=== PATIENT | female | born 1990 | race Hispanic/Latino ===

== ENCOUNTER 2021-10-16 17:25 | Emergency (ER) | payer OTHER ==
--- OUTSIDE RECORDS SUMMARY | 2021-10-16 17:28 | XMS REPORT | Continuity of Care Document ---
:1990 Author Organization [facility] t Address [address] [place] [address] Dr. M[address]. [address] [place] [address] Care Team Providers Name Role Phone Lainey Mitchell Attending Clinician Unavailable ISAAC Attending Clinician Unavailable Mckenzie Attending Clinician [phone] Lab, Fam Pob I Attending Clinician Unavailable Marvin Shelley Attending Clinician Marvin DELGADO Attending Clinician Unavailable Lainey Mitchell Admitting Clinician Unavailable ISAAC Admitting Clinician Unavailable Payers Payer Name Policy Type Policy Number Effective Date Expiration Date S am[place] [id number] 2017 - [employer] (POS) 00:00:00 Problems This patient has no known problems. Allergies, Adverse Reactions, Alerts Allergy Allergy Status Severity Reaction(s) Onset Inactive Treating Comm ents Source Name Type Date Date Clinician No Known DA Active [facility] 00 [facility] No Known DA Active U [facility] 6- [facility] 00 l [facility] No Known DA Active U [facility] All[facility]ie 6 [facility] 00:[facility]: [facility] 00 l [facility] NO KNOWN Drug Active Univers ALLERGIE Class ity of [facility] Social History Social Habit Start Date Stop Date Quantity Comments Source Sex Assigned At Uni versity [facility] to [facility]2 [facility] Smoking Status Start Date Stop Date Source Unknown if [facility] Medications This patient has no known medications. Procedures Procedure Date / Time Performed Performing Clinician Kirstie robinson [id number] 2021-06-30 00:00:00 HENDE.01 [facility] [id number] 2021-06-30 00:00:00 HENDE.01 [facility] [id number] 2021-06-29 00:00:00 HENDE.01 [facility] [id number] 2021-06-29 00:00:00 HENDE.01 [facility] Encounters Start End Encounter Admission Attending Care Care Encounter Source Date/Time Date/Time Type Type Clinicians Facility Department ID 2021-07-18 [id number] 09:31:00 Riri [id number] [facility] 2021-10-03 2021-10-03 Outpatient SISSON_C [facility] [id number] [place] 03:19:00 03:19:00 0531 Commun i ty Hospita [facility] 2021-10-03 2021-10-03 [facility] [id number] 00:00:00 00:00:00 Sarita [id number] 2021-09-27 2021-09-27 [facility] [id number] [place] 03:54:00 03:54:00 0525 Commun i ty Hospita l [facility] 2021-06-29 2021-07-01 Inpatient KARIN Leone [facility] [id number] [facility] 22:01:00 13:13:00 Riri [id number] [facility] 2021-06-29 2021-06-29 Inpatient DENISSE Leone OBPP [id number] [facility] 22:01:00 22:01:00 Riri 95 [facility] 2021-01-13 2021-01-13 Outpatient KARIN Davis [facility] [id number] [facility] 08:16:00 08:16:00 Riri [id number] [facility] [place] 2019-10-28 2019-10-28 Laboratory Lab, Adc Fam Pob I [facility] 1.2. [id number] Univers 10:46:51 11:06:51 Only Inna Delgado [facility] [id number] ity of [place] [id number] [place] [facility] [id number] Sc dical [facility] [address] 2019-10-28 2019-10-28 Outpatient R DANNY [facility] [id number] Univers 11:00:00 11:00:00 INNA albarran [facility] Results Test Description Test Time Test Comments Results Result Comments Source CBC W/AUTO DIFF 2021-06-30 07:56:00 Test Item Value Reference Range Interpretation Comme nts WHITE BLOOD CELL (test code = WBC) 13.1 K/mm3 6.5-12.3 H RED BLOOD CELL (test code = RBC) 3.75 M/mm3 3.51-4.69 N HEMOGLOBIN (test code = HGB) 11.6 g/dL 10.1-13.8 N HEMATOCRIT (test code = HCT) 34.8 % 32.5-41.8 N MEAN CELL VOLUME (test code = MCV) 92.8 fL 84.6-96.6 N MEAN CELL HGB (test code = MCH) 30.9 pg 27.3-33.9 N MEAN CELL HGB CONCETRATION (test code = MCHC) 33.3 gm/dL 32.0-34. 2 N RED CELL DISTRIBUTION WIDTH (test code = RDW) 12.7 % 12.2-16. 3 N PLATELET COUNT (test code = PLT) 127 K/mm3 134-363 L MEAN PLATELET VOLUME (test code = MPV) 12.3 fL 9.2-12.7 N NEUTROPHIL % (test code = NT%) 75.6 % 57.9-77.3 N LYMPHOCYTE % (test code = LY%) 15.0 % 14.5-29.7 N MONOCYTE % (test code = MO%) 6.8 % 3.6-10.2 N EOSINOPHIL % (test code = EO%) 1.4 % 0.0-3.0 N BASOPHIL % (test code = BA%) 0.4 % 0.1-0.9 N NEUTROPHIL # (test code = NT#) 9.9 K/mm3 LYMPHOCYTE # (test code = LY#) 2.0 K/mm3 MONOCYTE # (test code = MO#) 0.9 K/mm3 EOSINOPHIL # (test code = EO#) 0.18 K/mm3 BASOPHIL # (test code = BA#) 0.1 K/mm3 RBC MORPHOLOGY REQUIRED (test code = RBCM) NORMAL NORMAL PLATELET MORPHOLOGY REQUIRED (test code = PLTMR) NORMAL PAT L AG HEPATITIS B [id number] 04:38:00 Test Item Value Reference Range Interpretation Comments AG HEPATITIS B SURFACE (test code NONREACTIVE NONREACTIVE = HBSAG) AB HEPATITIS C [id number] 04:38:00 Test Item Value Reference Range Interpretation Comments AB HEPATITIS C (test code = NONREACTIVE NONREACTIVE HCVAB) SIGNAL TO CUTOFF (test code = 0.08 <0.80 N CUTOFF) AB [id number] 04:38:00 Test Item Value Reference Range Interpretation Comments AB TREPONEMA (test code = TREPAB) NONREACTIVE NONREACTIVE AB HIV 1 04:38:00 Test Item Value Reference Range Interpretation Comments AB HIV 1 2 (test NONREACTIVE NONREACTIVE Done by Luis avila [facility] code = [id number]) 4th Gen HIV Ag/Ab Combo Screen RUBELLA [id number] 04:38:00 Test Item Value Reference Range Interpretation Comments RUBELLA SCREEN 85.9 IUnit/ml Results >10. 0IUnits/ml (test code = are considered positive RUBSC) inaccordance wi th the CLSI guidelines and based on the WH [employer] S tandard for Anti-Rubell a serum as anindicator of immune status and a br eakpoint to detect mostseropositiv e persons. COVID 19 Asymptomatic IH [id number] 23:42:00 Test Item Value Reference Range Interpretation Comments COVID 19 NEGATIVE NEGATIVE This test has been Asymptomatic IH AG authorize d only for the (test code = detection ofpro teins from COVNONPUIAG) SARS-CoV-2, not for any other viruses orpathogens. N egative results should be treated as presumptive andconfirmed wi th a molecular assay , if necessary for patientmanageme nt. Negative result s do not rule out COVID- 19 andshould not b e used as the sole basis for treatment orpat ient management deci sions, including infec tion controldecision s. Negative result s should be considered i n thecontext of a patient's recent exposure s, history and thepresence of clinical signs and symptoms consis tent withCOVID-19. T his test has not been FD A cleared or approved; th e test hasbeen authori vera by FDA under an Emerge ncy Use Authorization(E UA) for use by laborato jessy certified under the CLIA thatmeet the re quirements to perform mode rate, high or waivedcomple xity tests. This sigifredo t is authorized for use at thePoint of Car e (POC), i.e., in patien t care settingsoperati ng under a CLIA Certificat e of Waiver, Certifi lluvia ofCompliance, o r Certificate of Accreditation. This test is only authori zed for the duration of thedeclaration that circumstances e xist justifying theauthorizatio n of emergency use o f in vitro diagnostic test sfor detection and/o r diagnosis of CO VID-19 under Jmpshpc50 4(b)(1) of the Act, 21 U.S .C. 360bbb-3(b)(1), unless theauthorizatio n is terminated or r evoked sooner. CBC W/AUTO [id number] 23:04:00 Test Item Value Reference Range Interpretation Comments WHITE BLOOD CELL (test code = WBC) 15.9 K/mm3 6.5-12.3 H RED BLOOD CELL (test code = RBC) 4.31 M/mm3 3.51-4.69 N HEMOGLOBIN (test code = HGB) 13.3 g/dL 10.1-13.8 N HEMATOCRIT (test code = HCT) 38.9 % 32.5-41.8 N MEAN CELL VOLUME (test code = MCV) 90.3 fL 84.6-96.6 N MEAN CELL HGB (test code = MCH) 30.9 pg 27.3-33.9 N MEAN CELL HGB CONCETRATION (test 34.2 gm/dL 32.0-34.2 N code = MCHC) RED CELL DISTRIBUTION WIDTH (test 12.6 % 12.2-16.3 N code = RDW) PLATELET COUNT (test code = PLT) 162 K/mm3 134-363 N MEAN PLATELET VOLUME (test code = 13.2 fL 9.2-12.7 H MPV) NEUTROPHIL % (test code = NT%) 66.6 % 57.9-77.3 N LYMPHOCYTE % (test code = LY%) 22.3 % 14.5-29.7 N MONOCYTE % (test code = MO%) 7.6 % 3.6-10.2 N EOSINOPHIL % (test code = EO%) 1.7 % 0.0-3.0 N BASOPHIL % (test code = BA%) 0.5 % 0.1-0.9 N NEUTROPHIL # (test code = NT#) 10.6 K/mm3 LYMPHOCYTE # (test code = LY#) 3.6 K/mm3 MONOCYTE # (test code = MO#) 1.2 K/mm3 EOSINOPHIL # (test code = EO#) 0.27 K/mm3 BASOPHIL # (test code = BA#) 0.1 K/mm3 RBC MORPHOLOGY REQUIRED (test code NORMAL NORMAL = RBCM) PLATELET MORPHOLOGY REQUIRED (test NORMAL NORMAL code = PLTMR) - US PREG UT [id number] 00:00:00 [facility] : 1990 Sex: F Patient Name: ENID OLIVER Unit No: [id number] EXAMS: CPT CODE: [id number] US PREG UT TRANSVAGINAL 56000 PROCEDURE INFORMATION: Exam: US Duplex Artery or Vein of the Abdominal and/or Reproductive Organs, Limited Ovaries Exam date and time: 01/13/2021 8:33 AM Age: 30 years old Clinical indication: Screening exam; Cx length; Routine US, uterus; Additional info:HX of delivery, check cervical length TECHNIQUE: Imaging protocol: Real-time duplexultrasound scan of the arterial or venous flow with hoover scale, color Doppler flow and spectral waveform analysis with image documentation. Limited duplex exam focused on the ovaries. Duplex images required to evaluate for torsion and other vascular conditions. COMPARISON: US PREG UT TRA NSVAGINAL 08/07/2018 11:26 AM FINDINGS: Right ovary Doppler: The right ovary was not visualized. Left ovary Doppler: Normal duplex of the ovary. Normal Doppler waveforms and color flow.IMPRESSION: Normal left ovarian blood flow. Nonvisualized right ovary. PROCEDURE INFORMATION: Exam: US First Trimester, Transabdominal and US , Transvaginal Exam date and time: 01/13/2021 8:33 AM Age: 30 years old Clinical indication: Screening exam; Cx length; Routine US, uterus; Additional info: HX of delivery, check cervical length LABS AND CLINICAL REPORTS: Last menstrual period start date: 10/11/2020 Gestational age by LMP: 13 weeks, 3 days Estimated due date by last menstrual period: 07/18/2021 TECHNIQUE: Imaging protocol: Real-time transabdominal obstetrical ultrasound of the maternal pelvis and a first trimester , less than 14 weeks 0 days, with image documentation. Transvaginal imaging was used for better evaluation of the fetus, adnexa, and/or cervix. COMPARISON: US PREG UT TRANSVAGINAL 08/07/2018 11:26 AM FINDINGS: Gestation: Intrauterine with normal appearance of the [facility] NAME: ENID OLIVER Radiology Department P HYS: Riri Mcgraw MD [address] : 1990 AGE: 30 SEX: F [place], [place] [address] LOC: KelRAD PHONE #: [phone] EXAM DATE: 01/13/2021 STATUS: REG CLI FAX #: [phone] RAD NO: Page 1 Signed Report (CONTINUED) Patient Name: ENID OLIVER Unit No: [id number] EXAMS: CPT CODE: [id number] US PREG UT TRANSVAGINAL 83281 <Continued> fetus for gestational age. Evaluation of anatomy is limited at this point in gestational. Embryonic/ heart rate: heart rate of 148 bpm. Extra-embryonic membranes/Placenta: Posterior placenta without placenta previa. No placenta previa. No subchor ionic hemorrhage. Amniotic fluid: Subjectively normal. BIOMETRY: Gestational age (AUA): 13 weeks, 6 days Ruthven-Rump length: 7.9 cm MATERNAL: Uterus: Anteverted uterus measures 12 x 9 x 11.6 cm. Normal contour and myometrial echogenicity. Cervix: The cervix measures 3.7 cm. Right adnexa: The right ovary was not visualized. No adnexal mass. Left adnexa:The left ovary measures 2.3 x 1.4 x 1.8 cm. Normal contour. Normal blood flow. Corpus luteum measures 0.9 x 1.1 x 0.7 cm. Intraperitoneal space: No intraperitoneal free fluid. IMPRESSION: 1. Single live intrauterine with heart rate of 148 bpm and estimated g estational age of 13 weeks, 6 days by today's exam. 2. The cervix measures 3.7 cm. at 0955 Reported and signed by: Melvin Sims MD CC: Riri Mitchell MD Technologist: Citlali Mo [facility] Probe: [id number] Trnscrbd D/ (0955) GCD.CPS Orig Print D/T: S: 01/13/2021 (0958) [facility] NAME: ENID OLIVER Radiology Department PHYS: PRIYANK.Tera - Riri Mitchell MD [address] : 1990 AGE: 30 SEX: F [place], [place] [address] LOC: Fernando.RAD PHONE #: [phone] EXAM DATE: 01/13/2021 STATUS: REG CLI FAX #: [phone] RAD NO: Page 2 Signed Report Patient Name: ENID OLIVER Unit No: [id number] EXAMS: CPT CODE: [id number] US PREG UT TRANSVAGINAL 59539 <Continued> [facility] NAME: ENID OLIVER Radiology Department PHYS: Riri Mcgraw MD [address] : 1990 AGE: 30 SEX: F [place], [place] [address] LOC: F.RAD PHONE #: [phone] EXAM DATE: 01/13/2021 STATUS: REG CLI FAX #: [phone] RAD NO: Page 3 Signed Report- US PREG EVAL 1ST [id number] 00:00:00 [facility] 1990 Sex: F Patient Name: ENID OLIVER Unit No: [id number] EXAMS: CPT CODE: [id number] US PREG EVAL 1ST TRIMTR 79863 PROCEDURE INFORMATION: Exam: US Duplex Artery or Vein of the Abdominal and/or Reproductive Organs, Limited Ovaries Exam date and time: 01/13/2021 8:33 AM Age: 30 years old Clinical indication: Screening exam; Cx length; Routine US, uterus; Additional info:HX of delivery, check cervical length TECHNIQUE: Imaging protocol: Real-time duplexultrasound scan of the arterial or venous flow with hoover scale, color Doppler flow and spectral waveform analysis with image documentation. Limited duplex exam focused on the ovaries. Duplex images required to evaluate for torsion and other vascular conditions. COMPARISON: US PREG UT TRA NSVAGINAL 08/07/2018 11:26 AM FINDINGS: Right ovary Doppler: The right ovary was not visualized. Left ovary Doppler: Normal duplex of the ovary. Normal Doppler waveforms and color flow.IMPRESSION: Normal left ovarian blood flow. Nonvisualized right ovary. PROCEDURE INFORMATION: Exam: US First Trimester, Transabdominal and US , Transvaginal Exam date and time: 01/13/2021 8:33 AM Age: 30 years old Clinical indication: Screening exam; Cx length; Routine US, uterus; Additional info: HX of delivery, check cervical length LABS AND CLINICAL REPORTS: Last menstrual period start date: 10/11/2020 Gestational age by LMP: 13 weeks, 3 days Estimated due date by last menstrual period: 07/18/2021 TECHNIQUE: Imaging protocol: Real-time transabdominal obstetrical ultrasound of the maternal pelvis and a first trimester , less than 14 weeks 0 days, with image documentation. Transvaginal imaging was used for better evaluation of the fetus, adnexa, and/or cervix. COMPARISON: US PREG UT TRANSVAGINAL 08/07/2018 11:26 AM FINDINGS: Gestation: Intrauterine with normal appearance of the [facility] NAME: ENID OLIVER Radiology Department P HYS: JOSE - Riri Mitchell MD [address] : 1990 AGE: 30 SEX: F [place], [place] [address] LOC: F.RAD PHONE #: [phone] EXAM DATE: 01/13/2021 STATUS: REG CLI FAX #: [phone] RAD NO: Page 1 Signed Report (CONTINUED) Patient Name: ENID OLIVER Unit No: [id number] EXAMS: CPT CODE: [id number] US PREG EVAL 1ST TRIMTR 96811 <Continued> fetus for gestational age. Evaluation of anatomy is limited at this point in gestational. Embryonic/ heart rate: heart rate of 148 bpm. Extra-embryonic membranes/Placenta: Posterior placenta without placenta previa. No placenta previa. No subchor ionic hemorrhage. Amniotic fluid: Subjectively normal. BIOMETRY: Gestational age (AUA): 13 weeks, 6 days Ruthven-Rump length: 7.9 cm MATERNAL: Uterus: Anteverted uterus measures 12 x 9 x 11.6 cm. Normal contour and myometrial echogenicity. Cervix: The cervix measures 3.7 cm. Right adnexa: The right ovary was not visualized. No adnexal mass. Left adnexa:The left ovary measures 2.3 x 1.4 x 1.8 cm. Normal contour. Normal blood flow. Corpus luteum measures 0.9 x 1.1 x 0.7 cm. Intraperitoneal space: No intraperitoneal free fluid. IMPRESSION: 1. Single live intrauterine with heart rate of 148 bpm and estimated g estational age of 13 weeks, 6 days by today's exam. 2. The cervix measures 3.7 cm. at 0955 Reported and signed by: Melvin Sims MD CC: Riri Mitchell MD Technologist: Citlali Mo RDMS Probe: Trnscrbd D/ (3555) GCD.CPS Orig Print D/T: S: 01/13/2021 (0956) [facility] NAME: ENID OLIVER Radiology Department PHYS: PRIYANK. - Riri Mitchell MD [address] : 1990 AGE: 30 SEX: F [place] [address] LOC: Fernando.RAD PHONE #: [phone] EXAM DATE: 01/13/2021 STATUS: REG CLI FAX #: [phone] RAD NO: Page 2 Signed Report Patient Name: ENID OLIVER Unit No: [id number] EXAMS: CPT CODE: [id number] US PREG EVAL 1ST TRIMTR 23544 <Continued> [facility] NAME: ENID OLIVER Radiology Department PHYS: - Riri Mitchell MD [address] : 1990 AGE: 30 SEX: F [place] [address] LOC: F.RAD PHONE #: [phone] EXAM DATE: 01/13/2021 STATUS: REG CLI FAX #: [phone] RAD NO: Page 3 Signed Report- DUP AB/PEL/SC/[id number] 00:00:00 [facility] : 1990 Sex: F Patient Name: ENID OLIVER Unit No: [id number] EXAMS: CPT CODE: [id number] DUP AB/PEL/SC/LTD 57218 PROCEDURE INFORMATION: Exam: US Duplex Artery or Vein of the Abdominal and/or Reproductive Organs, Limited Ovaries Exam date and time: 01/13/2021 8:33 AM Age: 30 years old Clinical indication: Screening exam; Cx length; Routine US, uterus; Additional info:HX of delivery, check cervical length TECHNIQUE: Imaging protocol: Real-time duplex ultrasound scan of the arterial or venous flow with hoover scale, color Doppler flow and spectral waveform analysis with image documentation. Limited duplex exam focused on the ovaries. Duplex images required to evaluate for torsion and other vascular conditions. COMPARISON: US PREG UT TRANSVAGINAL 08/07/2018 11:26 AM FINDINGS: Right ovary Doppler: The right ovary was not visualized. Left ovary Doppler: Normal duplex of the ovary. Normal Doppler waveforms and color flow.IMPRESSION: Normal left ovarian blood flow. Nonvisualized right ovary. PROCEDURE INFORMATION: Exam: US First Trimester, Transabdominal and US , Transvaginal Exam date and time: 01/13/2021 8:33 AM Age: 30 years old Clinical indication: Screening exam; Cx length; Routine US, uterus; Additional info: HX of delivery, check cervical length LABS AND CLINICAL REPORTS: Last menstrual period start date: 10/11/2020 Gestational age by LMP: 13 weeks, 3 days Estimated due date by last menstrual period: 07/18/2021 TECHNIQUE: Imaging protocol: Real-time transabdominal obstetrical ultrasound of the maternal pelvis and a first trimester , less than 14 weeks 0 days, with image documentation. Transvaginal imaging was used for better evaluation of the fe tus, adnexa, and/or cervix. COMPARISON: US PREG UT TRANSVAGINAL 08/07/2018 11:26 AM FINDINGS: Gestation: Intrauterine with normal appearance of the [facility] NAME: ENID OLIVER Radiology Department PHYS: JOSE Riri Mitchell MD [address] : 1990 AGE: 30 SEX: F [place], [place] [address] LOC: F.RAD PHONE #: [phone] EXAM DATE: 01/13/2021 STATUS: REG CLI FAX #: [phone] RAD NO: Page 1 Signed Report (CONTINUED) Patient Name: ENID OLIVER Unit No: [id number] EXAMS: CPT CODE: [id number] DUP AB/PEL/SC/LTD 40634 <Continued> fetus for gestational age. Evaluation of anatomy is limited at this point in gestational. Embryonic/ heart rate: heart rate of 148 bpm. Extra-embryonic membranes/Placenta: Posterior placenta without placenta previa. No placenta previa. No subchor ionic hemorrhage. Amniotic fluid: Subjectively normal. BIOMETRY: Gestational age (AUA): 13 weeks, 6 days Ruthven-Rump length: 7.9 cm MATERNAL: Uterus: Anteverted uterus measures 12 x 9 x 11.6 cm. Normal contour and myometrial echogenicity. Cervix: The cervix measures 3.7 cm. Right adnexa: The right ovary was not visualized. No adnexal mass. Left adnexa:The left ovary measures 2.3 x 1.4 x 1.8 cm. Normal contour. Normal blood flow. Corpus luteum measures 0.9 x 1.1 x 0.7 cm. Intraperitoneal space: No intraperitoneal free fluid. IMPRESSION: 1. Single live intrauterine with heart rate of 148 bpm and estimated g estational age of 13 weeks, 6 days by today's exam. 2. The cervix measures 3.7 cm. at 0955 Reported and signed by: Melvin Sims MD CC: Riri Mitchell MD Technologist: Citlali Mo RDMS Probe: Trnscrbd D/ (0955) GCD.CPS Orig Print D/T: S: 01/13/2021 (0958) [facility] NAME: ENID OLIVER Radiology Department [facility]YS: [facility] Riri Mitchell MD [address] : 1990 AGE: 30 SEX: F [place] [address] LOC: KelRAD PHONE #: [phone] EXAM DATE: 01/13/2021 STATUS: REG CLI FAX #: [phone] RAD NO: Page 2 Signed Report Patient Name: ENID OLIVER Unit No: [id number] EXAMS: CPT CODE: [id number] DUP AB/PEL/SC/LTD 54754 <Continued> [facility] NAME: ENID OLIVER Radiology Department PHYS: [facility] Riri Mitchell MD [address] : 1990 AGE: 30 SEX: F [place] [address] LOC: KelRAD PHONE #: [phone] EXAM DATE: 01/13/2021 STATUS: REG CLI FAX #: [phone] RAD NO: Page 3 Signed ReportPLACENTA THIRD [id number] 17:30:00 RUN DATE: 10/06/18 [facility] PAGE 1 RUN TIME: 2033 Specimen Inquiry RUN USER: INTERFACE PATIENT: ENID OLIVER LOC: CHAY U #: [id number] AGE/SX: ROOM: [facility] RE09/30/18REG DR: Riri Mitchell MD : [birth year] BED: A DIS: 10/02/18 STATUS: DIS IN TLOC: SPEC #: [id number] RECD: 09/30/18 STATUS: NAJMA AKASH #: [id number] SHERIDAN: 09/30/18- [facility] DR: Riri Mitchell MD ENTERED: 10/01/18 SP TYPE: PLACIII OTHR DR: Carley Hodge MD ORDERED: LEVEL V SURGICA CODES: [id number] - PLACENTA, NOS COPIES TO: Carley Fry MD [address] [place] [address] Riri Mitchell MD [address] [place] [id number] PROCEDURES: LEVEL V SURGICA (Incomplete) TISSUES: PLACENTA, NOS - PLACENTA CLINICAL HISTORY 28 year old, 35.2 weeks, [id number], vaginal delivery, prematurity (kr) FINAL DIAGNOSIS Placenta, delivery: - placenta with 3rd trimester morphology (357 gm), mean placental weight at 35 weeks - 434 gm (placenta is small dates, approximately the 10th percentile for weight at 35 weeks) - accelerated villous maturation with multifocal increase in the syncytial knots, suggestive of hypoperfusion - distal villous hypoplasia, multifocal - trivascular umbilical cord and membranes - free of inflammation COMMENT: The presence of the low weigh of the placenta combined with accelerated villous maturation, multifocal increase in the syncytial knots, and distal villous hypoplasia are compatible with a component of maternal vascular malperfusion. Pathologic features of uteroplacental malperfusion can be seen in maternal conditions with a component of vasculardisease (preeclampsia, hypertension, diabetes mellitus, and autoimmunity). There can be an increased risk for recurrence CONTINUED ON NEXT PAGE RUN DATE: 10/06/18 [facility] PAGE 2 RUN TIME: 2033 Specimen Inquiry RUN USER: INTERFACE SPEC #: [id number] PATIENT: ENID OLIVER Rohan #[id number] (Continued ) FINAL DIAGNOSIS (Continued) in future pregnancies. Tissue code 1 CPT code(s): 58035 marlo/corine dt: 10/03/18 GROSS DESCRIPTION The specimen was received in a container, labeled with the patient's name, unit number and designated "placenta". The following attributes are observed: Cord insertion: 4 cm from margin Cord length: 41 cm Number of vessels: 3 Cord color: Hayward Other cord findings: Less than 12 twists/01 cm surface findings: Steel blue, wrinkled, glistening with focal subchorionic fibrin depositionVasculature: Displays unremarkable blood vasculature Membranes rupture site: 1 cm to margin Membrane color: Hayward Other membrane findings: Thickened The trimmed placental weight: 357 gm Disk measurement: 16 x 15 x 2 cm in greatest dimension Accessory lobes: None Maternal surface: Lobulated and intact Parenchyma: Red, beefy, and spongy with peripheral fibrosis Parenchyma lesions: None Cassettes: A1 through A4 trisha/corine 10/01/18 @ 1125 MICROSCOPIC DESCRIPTION The placenta is composed of small vascular villi which are smaller and more mature than expected for the given gestation age. Multifocal increase in the syncytial knots is present. Multifocal distal villous hypoplasia is identified. The trivascular umbilical cord and membranes are free of inflammation. A subchorionic hematomais present. marlo/corine dt: 10/03/18 Signed Molly Coto 10/03/18 1730 END OF REPORT HGB HCT 2018-10-01 05:40:00 Test Item Value Reference Range Interpretation Comments HEMOGLOBIN (test code = HGB) 11.5 g/dL 10.7-13.9 N HEMATOCRIT (test code = HCT) 33.7 % 32.1-42.1 N AG HEPATITIS B [id number] 03:50:00 Test Item Value Reference Range Interpretation Comments AG HEPATITIS B SURFACE (test code NONREACTIVE NONREACTIVE = HBSAG) IS CONSENT FORM SIGNED FOR HIV TESTING? YAB HEPATITIS C [id number] 03:50:00 Test Item Value Reference Range Interpretation Comments AB HEPATITIS C (test code = NONREACTIVE NONREACTIVE HCVAB) SIGNAL TO CUTOFF (test code = 0.08 <0.80 N CUTOFF) IS CONSENT FORM SIGNED FOR HIV TESTING? YRUBELLA [id number] 03:50:00 Test Item Value Reference Range Interpretation Comments RUBELLA SCREEN 81.5 IUnit/ml Results >10. 0IUnits/ml (test code = are considered positive RUBSC) inaccordance wi th the CLSI guidelines and based on the [employer] S tandard for Anti-Rubell a serum as anindicator of immune status and a br eakpoint to detect mostseropositiv e persons. IS CONSENT FORM SIGNED FOR HIV TESTING? YAB [id number] 03:50:00 Test Item Value Reference Range Interpretation Comments AB TREPONEMA (test code = TREPAB) NONREACTIVE NONREACTIVE IS CONSENT FORM SIGNED FOR HIV TESTING? YAB HIV 1 03:50:00 Test Item Value Reference Range Interpretation Comments AB HIV 1 2 (test NONREACTIVE NONREACTIVE Done by [facility] code = [id number]) 4th Gen HIV Ag/Ab Combo Screen IS CONSENT FORM SIGNED FOR HIV TESTING? YAG HEPATITIS B [id number] 03:23:00 Test Item Value Reference Range Interpretation Comments AG HEPATITIS B SURFACE (test code NONREACTIVE NONREACTIVE = HBSAG) IS CONSENT FORM SIGNED FOR HIV TESTING? YAB HEPATITIS C [id number] 03:23:00 Test Item Value Reference Range Interpretation Comments AB HEPATITIS C (test code = HCVAB) NONREACTIVE SIGNAL TO CUTOFF (test code = CUTOFF) <0.80 IS CONSENT FORM SIGNED FOR HIV TESTING? YRUBELLA [id number] 03:23:00 Test Item Value Reference Range Interpretation Comments RUBELLA SCREEN 81.5 IUnit/ml Results >10. 0IUnits/ml (test code = are considered positive RUBSC) inaccordance wi th the CLSI guidelines and based on the O International S tandard for Anti-Rubell a serum as anindicator of immune status and a br eakpoint to detect mostseropositiv e persons. IS CONSENT FORM SIGNED FOR HIV TESTING? YAB [id number] 03:23:00 Test Item Value Reference Range Interpretation Comments AB TREPONEMA (test code = TREPAB) NONREACTIVE NONREACTIVE IS CONSENT FORM SIGNED FOR HIV TESTING? YAB HIV 1 03:23:00 Test Item Value Reference Range Interpretation Comments AB HIV 1 2 (test code = [id number]) NONREACTIVE IS CONSENT FORM SIGNED FOR HIV TESTING? YAG HEPATITIS B [id number] 03:17:00 Test Item Value Reference Range Interpretation Comments AG HEPATITIS B SURFACE (test code = NONREACTIVE HBSAG) IS CONSENT FORM SIGNED FOR HIV TESTING? B HEPATITIS C [id number] 03:17:00 Test Item Value Reference Range Interpretation Comments AB HEPATITIS C (test code = HCVAB) NONREACTIVE SIGNAL TO CUTOFF (test code = CUTOFF) <0.80 IS CONSENT FORM SIGNED FOR HIV TESTING? YRUBELLA [id number] 03:17:00 Test Item Value Reference Range Interpretation Comments RUBELLA SCREEN 81.5 IUnit/ml Results >10. 0IUnits/ml (test code = are considered positive RUBSC) inaccordance wi th the CLSI guidelines and based on the O International S tandard for Anti-Rubell a serum as anindicator of immune status and a br eakpoint to detect mostseropositiv e persons. IS CONSENT FORM SIGNED FOR HIV TESTING? YAB [id number] 03:17:00 Test Item Value Reference Range Interpretation Comments AB TREPONEMA (test code = TREPAB) NONREACTIVE IS CONSENT FORM SIGNED FOR HIV TESTING? YAB HIV 1 03:17:00 Test Item Value Reference Range Interpretation Comments AB HIV 1 2 (test code = [id number]) NONREACTIVE IS CONSENT FORM SIGNED FOR HIV TESTING? YCBC W/AUTO [id number] 02:39:00 Test Item Value Reference Range Interpretation Comments WHITE BLOOD CELL (test code = WBC) 12.5 K/mm3 6.6-12.1 H RED BLOOD CELL (test code = RBC) 4.14 M/mm3 3.45-5.01 N HEMOGLOBIN (test code = HGB) 13.1 g/dL 10.7-13.9 N HEMATOCRIT (test code = HCT) 38.2 % 32.1-42.1 N MEAN CELL VOLUME (test code = MCV) 92 fL 84.1-94.8 N MEAN CELL HGB (test code = MCH) 31.6 pg 27-35 N MEAN CELL HGB CONCETRATION (test 34.3 gm/dL 32.2-34.1 H code = MCHC) RED CELL DISTRIBUTION WIDTH (test 12.9 % 12.4-16.5 N code = RDW) PLATELET COUNT (test code = PLT) 136 K/mm3 133-385 N IMMATURE PLATELET FRACTION (test 0.0 % 0.0-10.8 N code = IPF) MEAN PLATELET VOLUME (test code = 13.0 fl 9.1-12.7 H MPV) NEUTROPHIL % (test code = NT%) 71.4 % 56.5-79.4 N LYMPHOCYTE % (test code = LY%) 18.1 % 14.3-34.3 N MONOCYTE % (test code = MO%) 7.5 % 5.1-10.4 N EOSINOPHIL % (test code = EO%) 1.3 % 0.1-3.0 N BASOPHIL % (test code = BA%) 0.4 % 0.1-1.0 N NEUTROPHIL # (test code = NT#) 8.9 K/mm3 LYMPHOCYTE # (test code = LY#) 2.3 K/mm3 MONOCYTE # (test code = MO#) 0.9 K/mm3 EOSINOPHIL # (test code = EO#) 0.16 K/mm3 BASOPHIL # (test code = BA#) 0.1 K/mm3 RBC MORPHOLOGY REQUIRED (test code NORMAL NORMAL = RBCM) PLATELET MORPHOLOGY REQUIRED (test NORMAL NORMAL code = PLTMR) AMNISURE (ROM) [id number] 01:59:00 Test Item Value Reference Range Interpretation Comments AMNISURE (ROM) TEST (test code = RUPTURED NON-RUPTURE A AMNI) : *Amnisure QC OK? YESAG HEPATITIS B [id number] 18:10:00 Test Item Value Reference Range Interpretation Comments AG HEPATITIS B SURFACE (test code NONREACTIVE NONREACTIVE = HBSAG) Comments to Charge Operator: LDO LIS CONSENT FORM SIGNED FOR HIV TESTING? YAB HEPATITIS C [id number] 18:10:00 Test Item Value Reference Range Interpretation Comments AB HEPATITIS C (test code = NONREACTIVE NONREACTIVE HCVAB) SIGNAL TO CUTOFF (test code = 0.03 <0.80 N CUTOFF) Comments to Charge Operator: LDO LIS CONSENT FORM SIGNED FOR HIV TESTING? YAB [id number] 18:10:00 Test Item Value Reference Range Interpretation Comments AB TREPONEMA (test code = TREPAB) NONREACTIVE NONREACTIVE Comments to Charge Operator: LDO LIS CONSENT FORM SIGNED FOR HIV TESTING? YAB HIV 1 18:10:00 Test Item Value Reference Range Interpretation Comments AB HIV 1 2 (test NONREACTIVE NONREACTIVE Done by S [employer] code = [id number]) 4th Gen HIV Ag/Ab Combo Screen Comments to Charge Operator: LDO LIS CONSENT FORM SIGNED FOR HIV TESTING? YAG HEPATITIS B [id number] 16:09:00 Test Item Value Reference Range Interpretation Comments AG HEPATITIS B SURFACE (test code = NONREACTIVE HBSAG) Comments to Charge Operator: LDO LIS CONSENT FORM SIGNED FOR HIV TESTING? YAB HEPATITIS C [id number] 16:09:00 Test Item Value Reference Range Interpretation Comments AB HEPATITIS C (test code = NONREACTIVE NONREACTIVE HCVAB) SIGNAL TO CUTOFF (test code = 0.03 <0.80 N CUTOFF) Comments to Charge Operator: LDO LIS CONSENT FORM SIGNED FOR HIV TESTING? YAB [id number] 16:09:00 Test Item Value Reference Range Interpretation Comments AB TREPONEMA (test code = TREPAB) NONREACTIVE NONREACTIVE Comments to Charge Operator: LDO LIS CONSENT FORM SIGNED FOR HIV TESTING? YAB HIV 1 16:09:00 Test Item Value Reference Range Interpretation Comments AB HIV 1 2 (test NONREACTIVE NONREACTIVE Done by S [employer] code = [id number]) 4th Gen HIV Ag/Ab Combo Screen Comments to Charge Operator: LDO LIS CONSENT FORM SIGNED FOR HIV TESTING? YCBC W/AUTO [id number] 14:07:00 Test Item Value Reference Range Interpretation Comments WHITE BLOOD CELL (test code = WBC) 13.6 K/mm3 6.6-12.1 H RED BLOOD CELL (test code = RBC) 4.20 M/mm3 3.45-5.01 N HEMOGLOBIN (test code = HGB) 13.0 g/dL 10.7-13.9 N HEMATOCRIT (test code = HCT) 39.4 % 32.1-42.1 N MEAN CELL VOLUME (test code = MCV) 94 fL 84.1-94.8 N MEAN CELL HGB (test code = MCH) 31.0 pg 27-35 N MEAN CELL HGB CONCETRATION (test 33.0 gm/dL 32.2-34.1 N code = MCHC) RED CELL DISTRIBUTION WIDTH (test 12.7 % 12.4-16.5 N code = RDW) PLATELET COUNT (test code = PLT) 138 K/mm3 133-385 N IMMATURE PLATELET FRACTION (test 0.0 % 0.0-10.8 N code = IPF) MEAN PLATELET VOLUME (test code = 12.6 fl 9.1-12.7 N MPV) NEUTROPHIL % (test code = NT%) 75.8 % 56.5-79.4 N LYMPHOCYTE % (test code = LY%) 14.5 % 14.3-34.3 N MONOCYTE % (test code = MO%) 7.0 % 5.1-10.4 N EOSINOPHIL % (test code = EO%) 0.8 % 0.1-3.0 N BASOPHIL % (test code = BA%) 0.4 % 0.1-1.0 N NEUTROPHIL # (test code = NT#) 10.3 K/mm3 LYMPHOCYTE # (test code = LY#) 2.0 K/mm3 MONOCYTE # (test code = MO#) 1.0 K/mm3 EOSINOPHIL # (test code = EO#) 0.11 K/mm3 BASOPHIL # (test code = BA#) 0.1 K/mm3 RBC MORPHOLOGY REQUIRED (test code NORMAL NORMAL = RBCM) PLATELET MORPHOLOGY REQUIRED (test NORMAL NORMAL code = PLTMR) URINALYSIS [id number] 13:02:00 Test Item Value Reference Range Interpretation Comments UA COLOR (test code = COLU) YELLOW YELLOW UA APPEARANCE (test code = CLEAR CLEAR APPU) UA GLUCOSE DIPSTICK (test code NEGATIVE NEG = DGLUU) UA BILIRUBIN DIPSTICK (test NEGATIVE NEG code = BILU) UA KETONE DIPSTICK (test code NEGATIVE NEG = KETU) UA SPECIFIC GRAVITY (test code 1.011 1.001-1.035 N = SGU) UA BLOOD DIPSTICK (test code = NEG NEG GRZEGORZ) UA PH DIPSTICK (test code = 6.0 5-9 MARAH) UA PROTEIN DIPSTICK (test code NEGATIVE NEG = PROU) UA UROBILINIOGEN DIPSTICK NEGATIVE mg/dL NEG (test code = URO) UA NITRITE DIPSTICK (test code NEG NEG = NAYELI) UA LEUKOCYTE ESTERASE DIPSTICK NEG NEG (test code = LEUU) UA WBC (test code = WBCU) 0-2 #/hpf NONE SEEN UA EPITHELIAL CELLS (test code RARE #/HPF RARE-FEW = EPIU) UA BACTERIA (test code = BACU) RARE /HPF RARE-FEW UA MUCUS (test code = MUCU) RARE NONE SEEN Comments to Charge Operator: MACURINE SAMPLE: CLEAN [id number] 05:12:00 Test Item Value Reference Range Interpretation Comments MAGNESIUM (test code = MAG) 4.5 mg/dL 1.8-2.4 H Comments to Charge Operator: 4 hours after mag initatedCBC W/AUTO [id number] 19:56:00 Test Item Value Reference Range Interpretation Comments WHITE BLOOD CELL (test code = WBC) 11.3 K/mm3 6.6-12.1 N RED BLOOD CELL (test code = RBC) 3.79 M/mm3 3.45-5.01 N HEMOGLOBIN (test code = HGB) 12.0 g/dL 10.7-13.9 N HEMATOCRIT (test code = HCT) 36.1 % 32.1-42.1 N MEAN CELL VOLUME (test code = MCV) 95 fL 84.1-94.8 H MEAN CELL HGB (test code = MCH) 31.7 pg 27-35 N MEAN CELL HGB CONCETRATION (test 33.2 gm/dL 32.2-34.1 N code = MCHC) RED CELL DISTRIBUTION WIDTH (test 12.8 % 12.4-16.5 N code = RDW) PLATELET COUNT (test code = PLT) 144 K/mm3 133-385 N IMMATURE PLATELET FRACTION (test 0.0 % 0.0-10.8 N code = IPF) MEAN PLATELET VOLUME (test code = 12.2 fl 9.1-12.7 N MPV) NEUTROPHIL % (test code = NT%) 84.3 % 56.5-79.4 H LYMPHOCYTE % (test code = LY%) 10.7 % 14.3-34.3 L MONOCYTE % (test code = MO%) 2.3 % 5.1-10.4 L EOSINOPHIL % (test code = EO%) 1.2 % 0.1-3.0 N BASOPHIL % (test code = BA%) 0.4 % 0.1-1.0 N NEUTROPHIL # (test code = NT#) 9.5 K/mm3 LYMPHOCYTE # (test code = LY#) 1.2 K/mm3 MONOCYTE # (test code = MO#) 0.3 K/mm3 EOSINOPHIL # (test code = EO#) 0.13 K/mm3 BASOPHIL # (test code = BA#) 0.1 K/mm3 RBC MORPHOLOGY REQUIRED (test code NORMAL NORMAL = RBCM) PLATELET MORPHOLOGY REQUIRED (test NORMAL NORMAL code = PLTMR) AG HEPATITIS B [id number] 19:35:00 Test Item Value Reference Range Interpretation Comments AG HEPATITIS B SURFACE (test code NONREACTIVE NONREACTIVE = HBSAG) AB HEPATITIS C [id number] 19:35:00 Test Item Value Reference Range Interpretation Comments AB HEPATITIS C (test code = NONREACTIVE NONREACTIVE HCVAB) SIGNAL TO CUTOFF (test code = 0.05 <0.80 N CUTOFF) RUBELLA [id number] 19:35:00 Test Item Value Reference Range Interpretation Comments RUBELLA SCREEN 72.9 IUnit/ml Results >10. 0IUnits/ml (test code = are considered positive RUBSC) inaccordance wi th the CLSI guidelines and based on the [employer] S tandard for Anti-Rubell a serum as anindicator of immune status and a br eakpoint to detect mostseropositiv e persons. AB [id number] 19:35:00 Test Item Value Reference Range Interpretation Comments AB TREPONEMA (test code = TREPAB) NONREACTIVE NONREACTIVE AG HEPATITIS B [id number] 19:06:00 Test Item Value Reference Range Interpretation Comments AG HEPATITIS B SURFACE (test code NONREACTIVE NONREACTIVE = HBSAG) AB HEPATITIS C [id number] 19:06:00 Test Item Value Reference Range Interpretation Comments AB HEPATITIS C (test code = HCVAB) NONREACTIVE SIGNAL TO CUTOFF (test code = CUTOFF) <0.80 RUBELLA [id number] 19:06:00 Test Item Value Reference Range Interpretation Comments RUBELLA SCREEN 72.9 IUnit/ml Results >10. 0IUnits/ml (test code = are considered positive RUBSC) inaccordance wi th the CLSI guidelines and based on the [employer] S tandard for Anti-Rubell a serum as anindicator of immune status and a br eakpoint to detect mostseropositiv e persons. AB [id number] 19:06:00 Test Item Value Reference Range Interpretation Comments AB TREPONEMA (test code = TREPAB) NONREACTIVE NONREACTIVE URINALYSIS [id number] 18:28:00 Test Item Value Reference Range Interpretation Comments UA COLOR (test code = COLU) YELLOW YELLOW UA APPEARANCE (test code = APPU) CLEAR CLEAR UA GLUCOSE DIPSTICK (test code = NEGATIVE NEGATIVE DGLUU) UA BILIRUBIN DIPSTICK (test code = NEGATIVE NEGATIVE BILU) UA KETONE DIPSTICK (test code = NEGATIVE NEGATIVE KETU) UA SPECIFIC GRAVITY (test code = <= 1.005 1.001-1.035 N SGU) UA BLOOD DIPSTICK (test code = NEG NEGATIVE GRZEGORZ) UA PH DIPSTICK (test code = MARAH) 6.0 5-9 UA PROTEIN DIPSTICK (test code = NEGATIVE NEGATIVE PROU) UA UROBILINIOGEN DIPSTICK (test 0.2 EU/dL <=1.0 code = URO) UA NITRITE DIPSTICK (test code = NEGATIVE NEGATIVE NAYELI) UA LEUKOCYTE ESTERASE DIPSTICK NEG NEGATIVE (test code = LEUU) UA WBC (test code = WBCU) 0-2 #/hpf NONE SEEN UA RBC (test code = RBCU) 0-2 #/hpf NONE SEEN UA EPITHELIAL CELLS (test code = RARE #/hpf NONE SEEN EPIU) UA BACTERIA (test code = BACU) RARE #/hpf NONE SEEN [id number] 16:55:00 Test Item Value Reference Range Interpretation Comments FIBRONECTIN POSITIVE Among symp tomatic (test code = FFN) women, little vated levels (>0.05 ug/mL) o ffFN between 24 week s and 34 weeks, 6 days i ndicate increasedrisk o f delivery in <= 7 or <= 14 days from samplecollectio n. Similarly, darin g asymptomatic wo men, elevated levels of fFNbetween 22 w eeks and 30 weeks, 6 day s indicate increa sedrisk of delivery in <= 34 weeks, 6 days o f gestation. Comments to Charge Operator: BROUGHT BY PT FROM OFFICEURINALYSIS [id number] 13:31:00 Test Item Value Reference Range Interpretation Comments UA COLOR (test code = COLU) STRAW YELLOW UA APPEARANCE (test code = CLEAR CLEAR APPU) UA GLUCOSE DIPSTICK (test code NEGATIVE NEG = DGLUU) UA BILIRUBIN DIPSTICK (test NEGATIVE NEG code = BILU) UA KETONE DIPSTICK (test code 1+ NEG A = KETU) UA SPECIFIC GRAVITY (test code 1.002 1.001-1.035 N = SGU) UA BLOOD DIPSTICK (test code = NEG NEG GRZEGORZ) UA PH DIPSTICK (test code = 7.0 5-9 MARAH) UA PROTEIN DIPSTICK (test code NEGATIVE NEG = PROU) UA UROBILINIOGEN DIPSTICK NEGATIVE mg/dL NEG (test code = URO) UA NITRITE DIPSTICK (test code NEG NEG = NAYELI) UA LEUKOCYTE ESTERASE DIPSTICK NEG NEG (test code = LEUU) UA WBC (test code = WBCU) 0-2 #/hpf NONE SEEN UA RBC (test code = RBCU) 0-2 #/hpf NONE SEEN UA EPITHELIAL CELLS (test code RARE #/HPF RARE-FEW = EPIU) UA BACTERIA (test code = BACU) RARE /HPF RARE-FEW UA MUCUS (test code = MUCU) RARE NONE SEEN URINE SAMPLE: CLEAN CATCH- US PREG UT [id number] 12:23:00 Patient Name: ENID OLIVER Unit No: [id number] EXAMS: CPT CODE: [id number] US PREG UT TRANSVAGINAL [address] [facility] [address] [place], [place] [address] OBSTETRICAL ULTRASOUND REPORT Pat. Name: ENID OLIVER Pat. No: [id number] Study Date: 08/07/2018 11:26am , Age: 11 1990, 28 Pregnancies: 2, Para 0 LMP: 12/30/2017 GA by LMP: 31w3d GA by 1st: 27w4d GA by US: 27w1d GA Selected: 27w4d (From Known E) REGINALDO: 11/02/2018 Referring MD: Jihan Funez Catalytic Converter Operator Helper: Bekah Yip RDMS, RVT CPT4: USPRUTTRVG Admitting MD: Jihan Funez Hist/Ind: F/U PYELECTASIS SCAN 2 MEASURE MENTS AGE GROWTH EVALUATION Measurement GA Range Srce %for GA Ratios ----- ---- ------- BPD 6.5 cm 26w3d (94b4a-68b6v) Hadl BPD 16% FL/BPD 0.82 (0.71 - 0.87) HC 25.2 cm 27w1d (99h9r-97x9e) Hadl HC 41% FL/AC 0.22 (0.20 - 0.24) APD 7.7 cm APD HC/AC 1.06 (1.00 - 1.18) TAD 7.4 cm TAD CI 0.75 (0.70 - 0.86) AC 23.7 cm 28w0d (05h4v-42q3l) HadlAC 58% FL 5.3 cm 27w6d (51g0w-87z8s) Hadl FL 55% HL 4.6 cm 27w2d (47o3k-52m8p) Ramana HL 44%GA for sonogram 27w1d (90a2j-00j3x) Weight Estimate: based on (BPD,HC,AC,FL) Shivam Albright ght: 1142 gm (976-1309) Hadloc : 2lbs, 8oz Normal: 1081 gm (723-1579) Brenne Wt% 55% for 27.6 wks Cervical Length: 0.9 cm Heart Rate: 144 bpm Amniotic Fluid Index: 18.3cm (09.4-22.7) Q1: 2.0cm Q2: 6.0cm Q3: 3.7cm Q4: 6.6cm MATERNAL ANATOMY Ovaries LxHxW (cm) Right 3.2 x 1.6 x 2.0 Vol: 5.4cc Left 2.7 x 1.3 x 2.1 Vol: 3.9cc Desc: . CLINICAL SUMMARY Type of Gestation: Champagne Intrauterine in vertex presentation. size is appropriate for gestational age by weight. growth: [facility] NAME: ENID OLIVER Radiology Department PHYS: Jihan He [address] : 1990 AGE: 28 SEX: Fernando [place], [place] [address]DUHC NO: [id number] LOC: Fernando.RAD PHONE #: [phone] EXAM DATE: 08/07/2018 STATUS: DEP CLI FAX #: [phone] RAD NO: Page 1 Signed Report (CONTINUED) Patient Name: ENID OLIVER Unit No: [id number] EXAMS: CPT CODE: [id number] US PREGUT TRANSVAGINAL 04711 <Continued> Consistent with normal growth motion and organs seen: heart motion seen somatic activity observed Regular cardiac rhythm observed abnormalities observed: RENAL PELVES AE STABLE (4MM RT AND 3MM LET Placental location: Anterior Placental maturity: Grade 1 There is no evidence of placenta previa. Amniotic fluid volume is normal. Uterus a nd adnexa: No significant abnormalities seen Cervix length 0.9CM. FINDINGS CONVEYED BY PHONE TO DR MITCHELL AT 12:15PM 08/07/2018. PATIENT WILL BE TAKEN TO MATERNAL ASSESSMENT CENTER. Thank youfor allowing us to participate in the care of this patient. Kaylen Lopez M.D. Electronic Signature 08/07/2018 12:23pm at 1223 Reported and signed by: Emelina Lopez MD CC: Technologist: Bekah Yip RDMS, RVT Probe: [id number] Trnscrbd D/ (1223) Andreea Peña Print D/T: S: 08/12/2018 (1554) [facility] NAME: ENID OLIVER Radiology Department PHYS: Jihan He [address] : 1990 AGE: 28 SEX: [place], [place] [address] LOC: KelRAD PHONE #: [phone] EXAM DATE: 08/07/2018 STATUS: DEP CLI FAX #: [phone] RAD NO: Page 2 Signed Report Patient Name: ENID OLIVER Unit No: [id number] EXAMS: CPT CODE: [id number] US PREG UT TRANSVAGINAL [address] <Continued> [facility] NAME: ENID OLIVER Radiology Department PHYS: Jihan He [address] : 1990 AGE: 28 SEX: [place] [address] LOC: KelRAD PHONE #: [phone] EXAM DATE: 08/07/2018 STATUS: DEP CLI FAX #: [phone] RAD NO: Page 3 Signed Report- US FLW [id number] 12:23:00 Patient Name: ENID OLIVER Unit No: [id number] EXAMS: CPT [place]: [id number] [place] [address] [facility] [address] [place], [place] [address] OBSTETRICAL ULTRASOUND REPORT Pat. Name: ENID OLIVER Pat. No: [id number] Study Date: 08/07/2018 11:26am , Age: 11 1990, 28 Pregnancies: 2, Para 0 LMP: 12/30/2017 GA by LMP: 31w3d GA by 1st: 27w4d GA by US: 27w1d GA Selected: 27w4d (From Known E) REGINALDO: 11/02/2018 Referring MD: Riri Mitchell Catalytic Converter Operator Helper: Bekah Yip RDMS, RVT CPT4: USPREGFU Admitting MD: Mitchell, Riri C Hist/Ind: F/U PYELECTASIS SCAN 2 MEASUREMENTS AGE GROWTH EVALUATION Measurement GA Range Srce %for GA Ratios ----- ---- ------- BPD 6.5 cm 26w3d (78c8c-82o1w) Hadl BPD 16% FL/BPD 0.82 (0.71 - 0.87) HC 25.2 cm 27w1d (37a3x-64c8r) Hadl HC 41% FL/AC 0.22 (0.20 - 0.24) APD 7.7 cm APD HC/AC 1.06 (1.00 - 1.18) TAD 7.4 cm TAD CI 0.75 (0.70 - 0.86) AC 23.7 cm 28w0d (22e1m-00d0c) Hadl AC 58% FL 5.3 cm 27w6d (11y0c-44h3z) Hadl FL 55% HL 4.6 cm 27w2d (03h0g-08p4h) Ramana HL 44% GA for sonogram 27w1d (73j2j-33e6a) Weight Estimate: based on (BPD,HC,AC,FL) Hadlock Weight: 1142 gm (976-1309) Hadloc : 2lbs, 8oz Normal: 1081 gm (723-1579) Brenne Wt% 55% for 27.6 wks Cervical Length: 0.9 cm Heart Rate: 144 bpm Amniotic Fluid Index: 18.3cm(09.4-22.7) Q1: 2.0cm Q2: 6.0cm Q3: 3.7cm Q4: 6.6cm MATERNAL ANATOMY Ovaries LxHxW (cm) Right 3.2 x 1.6 x 2.0 Vol: 5.4cc Left 2.7 x 1.3 x 2.1 Vol: 3.9cc Desc: . CLINICAL SUMMARY Type of Gestation: Champagne Intrauterine in vertex presentation. size is appropriate for gestational age by weight. growth: [facility] NAME: ENID OLIVER Radiology Department PHYS: Jihan He [address] : 1990 AGE: 28 SEX: F [place], [place] [address] LOC: KelRAD PHONE #: [phone] EXAM DATE: 08/07/2018 STATUS: REG CLI FAX #: [phone] RAD NO: Page 1 Signed Report (CONTINUED) Patient Name: ENID OLIVER Unit No: [id number] EXAMS: CPT CODE: [id number] [place] [address]32 <Continued> Consistent with normal growth motion and organs seen: heart motion seen somatic activity observed Regular cardiac rhythm observed abnormalities observed: RENAL PELVES AE STABLE (4MM RT AND 3MM LET Placental location: Anterior Placental maturity :Grade 1 There is no evidence of placenta previa. Amniotic fluid volume is normal. Uterus and adnexa: No significant abnormalities seen Cervix length 0.9CM. FINDINGS CONVEYED BY PHONE TO DR MITCHELL AT 12:15PM 08/07/2018. PATIENT WILL BE TAKEN TO [facility]. Thank you for allowing us to participate in the care of this patient. Kaylen Lopez M.D. Electronic Signature 08/07/2018 12:23pm at 1223 Reported and signed by: Emelina Lopez MD CC: Technologist: Bekah Yip RDMS, RVTProbe: Trnscrbd D/ (9013) [email or web address] Orig Print D/T: S: 08/07/2018 (0793) [facility] NAME: BENITOENID Radiology Department PHYS: Jihan He [address] : 1990 AGE: 28 SEX: F [place] [address] LOC: [facility] PHONE #: [phone] EXAM DATE: 08/07/2018 STATUS: REG CLI FAX #: [phone] RAD NO: Page 2 Signed Report Patient Name: ENID OLIVER Unit No: [id number] EXAMS: CPT CODE: [id number] [place]W UP [address]138 <Continued> [facility] NAME: ENID OLIVER Radiology Department PHYS: Jihan He [address] : 1990 AGE: 28 SEX: F [place] [address] LOC: [facility] PHONE #: [phone] EXAM DATE: 08/07/2018 STATUS: REG CLI FAX #: [phone] RAD NO: Page 3 Signed Report- US PREG UT [id number] 11:32:00 Patient Name: ENID OLIVER Unit No: [id number] EXAMS: CPT CODE: [id number] US PREG UT TRANSVAGINAL [address] [facility] [address] [place], [place] [address] OBSTETRICAL ULTRASOUND REPORT Pat. Name: ENID OLIVER Pat. 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 Helper: Carmel Sheets RDMS, RVT CPT4: USPRUTTRVG Hist/Ind: SCAN 1 ANATOMY MEASUREMENTS AGE GROWTH EVALUATION Measurement GA Range Srce %for GA Ratios ----- ---- ------- BPD 4.7 cm 20w1d (10q9k-59n8k) Hadl BPD 69% FL/BPD 0.68 HC 17.4 cm 19w6d (47x7i-98t0k) Hadl HC 57% FL/AC 0.22 APD 4.9 cm APD HC/AC 1.18 (1.06 -1.25) TAD 4.5 cm TAD CI 0.80 (0.70 - 0.86) AC 14.8 cm 19w5d (69l9e-56h7l) Hadl AC 54% FL 3.2 cm 19w4d (56h9a-00w9x) Hadl FL 50% HL 3.1 cm 20w2d (14n9i-47t7s) Ramana HL 62% GA for sonogram 19w6d (32b2f-99d7k) Weight Estimate: based on (BPD,HC,AC,FL) H cami Weight: 326 gm (279-374) Hadlock : 0lbs, 11oz Cervical Length: 3.3 cm Heart Rate: 143 bpm MATERNAL ANATOMY Ovaries LxHxW (cm) Right 2.8 x 2.0 x 1.7 Vol: 5.0cc Left 2.1 x 0.9 x 1.1 Vol: 1.1cc CLINICAL SUMMARY Type of Gestation: Champagne Intrauterine in breech presentation. size is appropriate for gestational age by weight. motion and organs seen: heart motion seen somatic activity observed body and limb movements seen Four chamber heart observed Left ventricular outflow tract (LVOT) is not optimally seen due to lie. [facility] NAME: ENID OLIVER Radiology Department PHYS: Riri Mcgraw MD [address] : 1990 AGE: 28 SEX: F [place], [place] [address] LOC: Fernando.RAD PHONE #: [phone] EXAM DATE: 06/12/2018 STATUS: DEP CLI FAX #: [phone] RAD NO: Page 1 Signed Report (CONTINUED) Patient Name: ENID OLIVER Unit No: [id number] EXAMS: CPT CODE: [id number] [facility] TRANSVAGINAL 75622 <Continued> Right ventricular outflow tract (RVOT) seen Normal intracranial anatomy seen Umbilical cord insertion in fetus seen stomach, Renal Fossa, Bladder and Spine seen Three vessel umbilical cord noted THE RENAL PELVES ARE BORDERLINE PROMINENT, MEASURI NG 4MM IN THE RIGHT KIDNEY AND UPPER LIMITS OF NORMAL AT 3MM IN THE LEFT KIDNEY. Placental location: Anterior Low-lying(1.5CM FROM INTERNAL CERVICAL OS) Placental maturity : Grade 1 There is no evidence of placenta previa. Amniotic fluid volume is normal. Uterus and adnexa: No significant abnormalities seen Thank you for allowing us to participate in the care of this patient. Praveen Ramos M.D. Electronic Signature 06/12/2018 11:32am at 1132 Reported and signed by: rPaveen Ramos MD CC: Technologist: Carmel Sheets RDMS, RVT Probe: [id number] Trnscrbd D/ (1132) [email or web address] Orig Print D/T: S: 06/16/2018 (1606) [facility] NAME: ENID OLIVER Radiology Department PHYS: Riri Mcgraw MD [address] : 1990 AGE: 28 SEX:F [place], [place] [address] LOC: KelRAD PHONE #: [phone] EXAM DATE: 06/12/2018 STATUS: DEP CLI FAX #: [phone] RAD NO: Page 2 Signed Report Patient Name: ENID OLIVER Unit No: [id number] EXAMS: CPT CODE: [id number] US PREG UT TRANSVAGINAL 20267 <Continued> [facility] NAME: ENID OLIVER Radiology Department PHYS: [facility] - Vanda Mithcell MD [address] : 1990 AGE: 28 SEX: F [place] [address] LOC: KelRAD PHONE #: [phone] EXAM DATE: 06/12/2018 STATUS: DEP CLI FAX #: [phone] RAD NO: Page 3 Signed Report- US PREG AFTER [id number] 11:32:00 Patient Name: ENID OLIVER Unit No: [id number] EXAMS: CPT CODE: [id number] US PREG AFTER TRI [address] [facility] [address] [place], [place] [address] OBSTETRICAL ULTRASOUND REPORT Pat. Name: ENID OLIVER Pat. 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 Helper: Carmel Sheets RDMS, RVT CPT4: [id number] Admitting MD: RIRI MITCHELL Hist/Ind: SCAN 1 ANATOMY ------ MEASUREMENTS AGE GROWTH EVALUATION Measurement GA Range Srce %for GA Ratios ----- ---- ------- BPD 4.7 cm 20w1d (64h1z-84f6o) Hadl BPD 69% FL/BPD 0.68 HC 17.4 cm 19w6d (21h4d-15i6m) Hadl HC 57% FL/AC 0.22 APD 4.9 cm APD HC/AC 1.18 (1.06 - 1.25) TAD 4.5 cm TAD CI 0.80 (0.70 - 0.86) AC 14.8 cm 19w5d (64v1r-43d1n) Hadl AC 54% FL 3.2 cm 19w4d (00e7l-06z1i) Hadl FL 50% HL 3.1 cm 20w2d (58q1o-53k0j) Ramana HL 62% GA for sonogram 19w6d (95m2d-55r7a) Weight Estimate: based on (BPD,HC,AC,FL) Hadlock Weight: 326 gm (279-374) Hadlock : 0lbs, 11oz Cervical Length: 3.3 cm Heart Rate: 143 bpm MATERNAL ANATOMY Ovaries LxHxW (cm) Right 2.8 x 2.0 x 1.7 Vol: 5.0cc Left 2.1 x 0.9 x 1.1 Vol: 1.1cc CLINICAL SUMMARY Type of Gestation: Champagne Intrauterine in breech presentation. size is appropriate for gestational age by weight. motion and organs seen: heart motion seen somatic activity observed body and limb movements seen Four chamber fetalheart observed Left ventricular outflow tract (LVOT) is not optimally seen due [facility] NAME: ENID OLIVER Radiology Department PHYS: JOSE - Riri Mitchell MD [address] : 1990 AGE: 28 SEX: F [place], [place] [address] LOC: Fernando.RAD PHONE #: EXAM DATE: 06/12/2018 STATUS: REG CLI FAX #: [phone] RAD NO: Page 1 Signed Report (CONTINUED) Patient Name: ENID OLIVER Unit No: [id number] EXAMS: CPT CODE: [id number] US PREG AFTER TRI 86443 <Continued> to lie. Right ventricular outflow tract (RVOT) seen Normal intracranial anatomy seen Umbilical cord insertion in fetus seen stomach, Renal Fossa, Bladder and Spine seen Three vessel umbilical cord noted THE RENAL PELVES ARE BORDERLINE PROMINENT, MEASURING 4MM IN THE RIGHT KIDNEY AND UPPER LIMITS OF NORMAL AT 3MM IN THE LEFT KIDNEY. Placental location: Anterior Low-lying(1.5CM FROM INTERNAL CERVICAL OS) Placental maturity : Grade 1 There is no evidence of placenta previa. Amniotic fluid volume is normal. Uterus and adnexa: No significant abnormalities seen Thank you for allowing us to participate in the care of this patient. Praveen Ramos M.D. Electronic Signature 06/12/2018 11:32am at 1132 Reported and signed by: Praveen Ramos MD CC: Technologist: Carmel Sheets RDMS, RVT Probe: Trnscrbd D/ (1132) [email or web address] Orig Print D/T: S: 06/12/2018 (1132) [facility] NAME: ENID OLIVER Radiology Department PHYS: JOSE - Riri Mitchell MD [address] : 1990 AGE: 28 SEX: F [place] [address] LOC: Fernando.RAD PHONE #: [phone] EXAM DATE: 06/12/2018 STATUS: REG CLI FAX #: [phone] RAD NO: Page 2 Signed Report Patient Name: ENID OLIVER Unit No: [id number] EXAMS: CPT CODE: [id number] US PREG AFTER 1ST TRI 47146 <Continued> [facility] NAME: ENID OLIVER Radiology Department PHYS: Riri Mcgraw MD [address] : 1990 AGE: 28 SEX: F [place] [address] LOC: Fernando.RAD PHONE #: [phone] EXAM DATE: 06/12/2018 STATUS: REG CLI FAX #: [phone] RAD NO: Page 3 Signed Report
[2021-10-16] MEDS ORDERED: TETANUS & DIPHTHERIA TOX,ADULT 0.5 ML VIAL ONE (18:43)
[2021-10-16 18:44] LABS: Absolute Lymphocytes (CBC) 2.5 K/uL (0.7-4.9); Hematocrit 44.6 % (36.0-45.0); Lymphocytes % 23.9 % (15.3-44.8); MPV 9.1 fL (7.6-11.3); RBC Red Blood Cell Count 4.94 M/uL (3.86-4.86)
[2021-10-16 18:58] LABS: ALT/SGPT 22 U/L (12-78); AST/SGOT 16 U/L (15-37); Albumin 4.1 g/dL (3.4-5.0); Alkaline Phosphatase 79 U/L (45-117); BUN Blood Urea Nitrogen 17 mg/dL (7-18); Bicarbonate 25 mmol/L (21-32); Bilirubin Total 0.3 mg/dL (0.2-1.0); Glomerular Filtration Rate 91 ml/min (=/>90); Glucose Level 90 mg/dL (74-106); Potassium 4.2 mmol/L (3.5-5.1); Protein, Total 8.4 g/dL (6.4-8.2); Sodium Level 137 mmol/L (136-145)
[2021-10-16 19:05] LABS: Bilirubin Direct < 0.1 mg/dL (0-0.2)
--- NOTE | 2021-10-16 20:12 | ER ---
Nurse's Notes [facility] Name: Caprice Sands Age: 31 yrs Sex: Female : 1990 Arrival Date: 10/16/2021 Time: 17:26 Bed 12 Private MD: Diagnosis: Puncture wound without foreign body of left index finger without damage to nail, initial encounter-needlestick Presentation: 10/16 17:53 Chief complaint: Patient states: Stuck by unknown needle while searching a vehicle for ss work. Coronavirus screen: Client denies travel out of the [place] in the last 14 days. Ebola Screen: Patient denies exposure to infectious person. Patient denies travel to an Ebola-affected area in the 21 days before illness onset. Initial Sepsis Screen: Does the patient meet any 2 criteria? No. Patient's initial sepsis screen is negative. Does the patient have a suspected source of infection? No. Patient's initial sepsis screen is negative. Risk Assessment: Do you want to hurt yourself or someone else? Patient reports no desire to harm self or others. Onset of symptoms was October 16, 2021. 17:53 Method Of Arrival: Ambulatory ss 17:53 Acuity: PETER 4 ss Historical: - Allergies: 18:54 No Known Allergies; ss - Home Meds: 18:54 None [Active]; ss - PMHx: 18:54 None; ss - PSHx: 18:54 None; ss - Social history:: Smoking status: Patient denies any tobacco usage or history of. Screenin:59 Abuse screen: Denies threats or abuse. Denies injuries from another. Nutritional ss screening: No deficits noted. Tuberculosis screening: Never had TB. Fall Risk None identified. Assessment: 17:30 Reassessment: Pt cleaned puncture wound with alcohol pad prior to arrival. Pt cleaned ss puncture with warm soapy water. Now. General: Appears in no apparent distress. comfortable, Behavior is calm, cooperative. Pain: Denies pain. Neuro: Peñaloza Agitation-Sedation Scale (RASS): 0 - Alert and Calm Level of Consciousness is awake, alert, obeys commands, Oriented to person, place, time, situation. Cardiovascular: Capillary refill < 3 seconds is brisk in bilateral fingers. Respiratory: Airway is patent Trachea midline Respiratory effort is even, unlabored, Respiratory pattern is regular, symmetrical. Derm: Skin is intact, is healthy with good turgor, Skin is pink, warm \T\ dry. normal. 19:59 Reassessment: additional labs sent off for exposure panel. Pt notified of wait time. ss Has no complaints. MIGUE Yo at bedside discussing discharge plans with patient. Vital Signs: 17:53 BP 112 / 82; Pulse 79; Resp 15; Temp 97.9(TE); Pulse Ox 100% on R/A; Weight 68.95 kg; ss Height 5 ft. 6 in. (167.64 cm); Pain 0/10; 17:53 Body Mass Index 24.53 (68.95 kg, 167.64 cm) ED Course: 17:26 Patient arrived in ED. mr 17:45 Vickey Bustos PA is PHCP. cp 17:45 Curtis Mariscal MD is Attending Physician. cp 17:53 Arm band placed on right wrist. ss 17:54 Triage completed. ss 18:45 Inserted saline lock: 22 gauge in right antecubital area, using aseptic technique. ss Blood collected. 18:51 Allison Jiménez, EMILY is Primary Nurse. ss 19:59 Patient has correct armband on for positive identification. ss 20:01 No provider procedures requiring assistance completed. ss 20:22 Patient did not have IV access during this emergency room visit. 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 Exp: ss 07/29/2023. Lot #: [id number]. } Route: IM; Site: left deltoid; 19:47 Follow up: Response: No adverse reaction ss Medication: 19:59 VIS not applicable for this client. ss Outcome: 20:11 Discharge ordered by . cp 20:23 Discharged to home ambulatory. ss 20:23 Condition: good 20:23 Discharge instructions given to patient, Instructed on discharge instructions, follow up and referral plans. medication usage, Demonstrated understanding of instructions, follow-up care, medications, Prescriptions given X 3. 20:23 Patient left the ED. ss Signatures: Ary Dunbar mr Allison Jiménez, RN RN ss Vickey Bustos PA PA cp Corrections: (The following items were deleted from the chart) 20:22 20:01 Patient did not have IV access during this emergency room visit. ss ss
--- NOTE | 2021-10-16 20:12 | EDPHYS ---
Physician Documentation [facility] Name: Caprice Sands Age: 31 yrs Sex: Female : 1990 Arrival Date: 10/16/2021 Time: 17:26 Bed 12 Private MD: ED Physician Curtis Mariscal HPI: 10/16 18:00 This 31 yrs old Female presents to ER via Ambulatory with complaints of Needle cp Stick Exposure. 18:00 The patient or guardian reports a puncture wound, from a needle. The complaints affect cp the weaver side proximal phalanx left index finger. 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 No other complaints. Historical: - Allergies: 18:54 No Known Allergies; ss - Home Meds: 18:54 None [Active]; ss - PMHx: 18:54 None; ss - PSHx: 18:54 None; ss - Social history:: Smoking status: Patient denies any tobacco usage or history of. ROS: 18:05 Skin: Positive for puncture, of the left index finger. cp 18:05 Constitutional: Negative for body aches, chills, fever. cp 18:05 Neck: Negative for pain with movement, pain at rest, stiffness. 18:05 Cardiovascular: Negative for chest pain, palpitations. 18:05 Respiratory: Negative for cough, shortness of breath, wheezing. 18:05 Abdomen/GI: Negative for abdominal pain, nausea, vomiting, and diarrhea. 18:05 Back: Negative for pain at rest, pain with movement. 18:05 Neuro: Negative for altered mental status, headache, numbness, tingling, weakness. 18:05 All other systems are negative. Exam: 18:10 Constitutional: The patient appears in no acute distress, alert, awake, comfortable, cp non-toxic, well developed, well nourished. 18:10 Head/Face: Normocephalic, atraumatic. cp 18:10 Cardiovascular: Rate: normal. 18:10 Respiratory: the patient does not display signs of respiratory distress, Respirations: normal, no use of accessory muscles, no retractions, labored breathing, is not present. 18:10 Abdomen/GI: Exam negative for discomfort, distension, guarding, Inspection: abdomen appears normal. 18:10 Back: pain, is absent, ROM is normal. 18:10 Musculoskeletal/extremity: ROM: full active range of motion, in the left index finger, Perfusion: the extremity is normally perfused throughout, the left index finger Sensation intact. 18:10 Skin: injury, that can be described as clean, without bleeding, puncture(s), that are superficial, of the weaver side proximal phalanx left index finger. Vital Signs: 17:53 BP 112 / 82; Pulse 79; Resp 15; Temp 97.9(TE); Pulse Ox 100% on R/A; Weight 68.95 kg; ss Height 5 ft. 6 in. (167.64 cm); Pain 0/10; 17:53 Body Mass Index 24.53 (68.95 kg, 167.64 cm) ss MDM: 17:54 Patient medically screened. cp 18:30 Differential diagnosis: puncture wound, laceration. cp 20:10 Data reviewed: vital signs, nurses notes, lab test result(s). cp 20:10 Counseling: I had a detailed discussion with the patient and/or guardian regarding: the cp historical points, exam findings, and any diagnostic results supporting the discharge/admit diagnosis, lab results, the need for outpatient follow up, a family practitioner, to return to the emergency department if symptoms worsen or persist or if there are any questions or concerns that arise at home. 10/16 17:58 Order name: Chem 7; Complete Time: 19:25 cp 10/16 17:58 Order name: CBC with Diff; Complete Time: 19:25 10/16 19:25 Interpretation: Normal except: RBC 4.94; HGB 15.2. 10/16 17:58 Order name: Test, Serum; Complete Time: 19:55 cp 10/16 19:55 Interpretation: Reviewed. 10/16 17:58 Order name: LFT's; Complete Time: 19:25 10/16 19:26 Interpretation: Normal except: TP 8.4; GLOB 4.3; A/G 1.0. 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 Exp: ss 07/29/2023. Lot #: [id number]. } Route: IM; Site: left deltoid; 19:47 Follow up: Response: No adverse reaction Disposition: 10/17 14:40 Co-signature as Attending Physician, Curtis Mariscal MD. rn Disposition Summary: 10/16/21 20:11 Discharge Ordered Location: Home cp Problem: new cp Symptoms: have improved cp Condition: Stable cp Diagnosis - Puncture wound without foreign body of left index finger without damage to nail, cp initial encounter - needlestick Followup: cp - With: Private Physician - When: 1 - 2 days - Reason: Recheck today's complaints Discharge Instructions: - Discharge Summary Sheet cp - Needlestick and Sharps Injury cp - Puncture Wound cp Forms: - Medication Reconciliation Form cp - Thank You Letter cp - Antibiotic Education cp - Prescription Opioid Use cp Prescriptions: - Isentress 400 mg Oral tablet - take 1 tablet by ORAL route 2 times per day; 56 tablet; Refills: 0, Product cp Selection Permitted - Truvada 200-300 mg Oral tablet - take 1 tablet by ORAL route once daily; 28 tablet; Refills: 0, Product cp Selection Permitted - Cephalexin 500 mg Oral Capsule - take 1 capsule by ORAL route every 8 hours for 10 days; 30 capsule; Refills: 0, cp Product Selection Permitted Signatures: Dispatcher [employer] [facility] Curtis Mariscal MD MD rn Smirch, Shelby, RN RN ss Page, Corey, PA PA cp Corrections: (The following items were deleted from the chart) 10/16 19:48 18:50 Hepatitis C Virus Genotype ordered. [facility] ED[facility] 19:49 18:46 HIV (1 ordered. [facility] 10/17 18:46 10/16 18:35 Skin: Positive for puncture, of the left index finger, cp cp
[2021-10-16 20:28] VITALS: BP 112/82; TEMP 97.9; O2SAT 100
[2021-10-19 11:52] LABS: HBsAG Nonreactive (Nonreactive)
== END 2021-10-16 20:23 | disposition home or self-care (01) ==
LOC: ER 17:25
DX: S61.231A Puncture wound without foreign body of left index finger without damage to nail, initial encounter (principal); W46.0XXA Contact with hypodermic needle, initial encounter; Y92.488 Other paved roadways as the place of occurrence of the external cause; Y93.89 Activity, other specified; Y99.0 Civilian activity done for income or pay; Z23 Encounter for immunization
CPT/HCPCS: 36415; 80048; 80076; 84703; 85025; 86705; 86803; 87340; 87389; 90471; 90714; 99284